=== PATIENT | female | born 1955 | race Caucasian/White ===

== ENCOUNTER 2020-12-13 08:28 | Outpatient (REF) | payer MEDICARE, SELFPAY ==
--- NOTE | ~2020-12-13 | MM_ITS ---
EXAMINATION: MM SCREENING DIGITAL BREAST TOMOSYNTHESIS, BILATERAL CLINICAL INFORMATION: Screening. Asymptomatic. The lifetime risk of breast cancer based on the Tyrer-Cuzick Model is 4.0%. COMPARISON: Mammography: October 08, 2019 and studies dating back to April 28, 2012 TECHNIQUE: Digital breast tomosynthesis is performed in both the craniocaudal and mediolateral oblique views along with computer-aided detection (CAD). Synthesized 2D images are generated from the tomosynthesis. Additional right exaggerated craniocaudal view performed. FINDINGS: The breasts are heterogeneously dense, which may obscure small masses (ACR BI-RADS breast composition Category c). There are no significant masses, abnormal calcifications, or other abnormalities. MM/MM tomosynthesis screening BI IMPRESSION: There are no significant changes from prior study. ASSESSMENT: BI-RADS 1: Negative RECOMMENDATION: Routine annual mammography screening. This patient's information was entered into a reminder system with a target due date for their next mammogram.
== END 2020-12-13 08:29 | disposition home or self-care (01) ==
LOC: HO.MAMMO 08:28
PROVIDERS: Visit Provider Family Medicine
DX: Z12.31 Encounter for screening mammogram for malignant neoplasm of breast (principal)
CPT/HCPCS: 77063; 77067

== ENCOUNTER 2021-03-13 06:34 | Day surgery (SDC) | payer MEDICARE, SELFPAY ==
--- NOTE | 2021-03-08 12:03 | HO.ANESPROP2 ---
HPI - Anesthesia Eval Consult details Narrative: 65yo F for Upper Endoscopy PMFSH Past Medical History Medical History Barretts esophagus Surgical History Surgical History History of esophagogastroduodenoscopy Hx of colonoscopy Social History Social History Patient Tobacco Use Status: Never used Tobacco Smoked in Last 30 Days: No Use of substances other than those prescribed or required for medical reasons: No Are you DNR?: No Advance Directives: No Advance Directives Information Provided: Yes Recently lost weight without trying: No Nutrition Risks: No Nutritional Risk Meds Allergies Allergy/AdvReac Type Severity Reaction Status Date / Time clindamycin Allergy Anaphylaxis Verified 03/13/21 06:46 Home Medications Medication Instructions Recorded Confirmed Last Taken Type atorvastatin 1 tab PO DAILY 03/13/21 03/13/21 03/13/21 History omeprazole 1 cap PO DAILY 03/13/21 03/13/21 03/13/21 History Exam Exam Date and Time: March 08, 2021 1203 Assessment and Plan Assessment Anesthesia Assessment: Chart Reviewed
[2021-03-13 06:42] VITALS: BMI 20.9
[2021-03-13 06:52] VITALS: BP 159/84; PULSE 59; RESP 16; TEMP 36.6; O2SAT 99
[2021-03-13] MEDS: Lactated Ringers 1,000 ML 50 ML IV (07:02)
--- NOTE | 2021-03-13 07:30 | MHC.SHP ---
Pre-Procedural Eval Section B Chief Complaint: dysphasia,barretts Details of Present Illness: see H&P no changes Relevant Family History (Specify if Yes): No Relevant Social History: None Present Medications: see Short Stay Collaborative assessment Medical History: No relevant PMH History of Previous Operations: No relevant previous surgery Allergies: Allergies Allergy/AdvReac Type Severity Reaction Status Date / Time clindamycin Allergy Anaphylaxis Verified 03/13/21 06:46 Review of Systems Sugical H&P ROS: Negative: Constitution, Cardiovascular, Respiratory, Neurological, Psychiatric, Hem-Onc, Allergic/Immunologic, Gastrointestinal, Genitourinary, Musculoskeletal, Integumentary, Endocrine and Eyes/Ears/Nose/Throat Exam Surgical H&P Exam: Normal: HEENT, Normal: Heart, Normal: Lungs, Normal: Extremities, Normal: Abdomen, Normal: Skin and Normal: Neurological Plan Diagnosis/Plan: Unchanged I have reviewed the history and physical and performed a pertinent physical examination on my patient. No changes have occurred unless specified.
--- NOTE | 2021-03-13 07:41 | P.CONAN_ITS ---
[facility] Past Medical History Medical History Barretts esophagus Surgical History Surgical History History of esophagogastroduodenoscopy Hx of colonoscopy Social History Social History Patient Tobacco Use Status: Never used Tobacco Smoked in Last 30 Days: No Use of substances other than those prescribed or required for medical reasons: No Are you DNR?: No Advance Directives: No Advance Directives Information Provided: Yes Recently lost weight without trying: No Nutrition Risks: No Nutritional Risk Meds Allergies Allergy/AdvReac Type Severity Reaction Status Date / Time clindamycin Allergy Anaphylaxis Verified 03/13/21 06:46 Active Medications: Current Medications Generic Name Dose Route Start Last Admin Trade Name Freq PRN Reason Stop Dose Admin Lactated Ringer's 1,000 mls @ 50 mls/hr 03/13/21 06:30 03/13/21 07:02 Lr IV 50 mls/hr .Q20H DENISE Administration Home Medications Medication Instructions Recorded Confirmed Last Taken Type atorvastatin 1 tab PO DAILY 03/13/21 03/13/21 03/13/21 History omeprazole 1 cap PO DAILY 03/13/21 03/13/21 03/13/21 History Exam Exam Date and Time: March 13, 2021 0741 Height,Weight and Vital Signs: Height 5 ft 6 in Weight 58.967 kg Last Vital Signs Temp 97.9 F 03/13/21 06:52 Pulse 59 03/13/21 06:52 Resp 16 03/13/21 06:52 BP 159/84 H 03/13/21 06:52 Pulse Ox 99 03/13/21 06:52 Airway Mallampati Class: I TM Dist: >3cm Neck ROM: Full Denture: Upper Heart: RTT of
--- NOTE | 2021-03-13 07:49 | P.BOP_ITS ---
Brief Operative Note Date of Service: 03/13/21 Pre-op diagnosis: barretts Post-op diagnosis: same Surgeon: Clark Martin Anesthesia: MAC Was an General Accounting Manager used for this Procedure?: No Estimated blood loss (mL): 2 Pathology: other (bxs esophagus, gastric polyp) Condition: stable Disposition: PACU
[2021-03-13 07:52] VITALS: BP 116/63; PULSE 78; RESP 16; TEMP 36.3; O2SAT 96
[2021-03-13 08:07] VITALS: BP 128/72; PULSE 75; RESP 17; TEMP 36.3; O2SAT 99
--- NOTE | 2021-03-13 19:05 | OP_ITS ---
SURGEON: Clark Martin MD INDICATIONS: Pearce's esophagus. PREOPERATIVE DIAGNOSIS: POSTOPERATIVE DIAGNOSIS: PROCEDURE PERFORMED: Upper endoscopy with biopsy. ESTIMATED BLOOD LOSS: COMPLICATIONS: ANESTHESIA: ASSISTANTS: SPECIMENS: MEDICATIONS: Monitored anesthesia care. DESCRIPTION OF PROCEDURE: History and physical performed. The risks and benefits of the procedure were explained to the patient. Informed consent was obtained. The patient was placed in the left lateral decubitus position. The Olympus video gastroscope was introduced into the esophagus, stomach, and duodenum. Examination was performed. The scope was removed. She tolerated the procedure well and was taken to recovery in stable condition. FINDINGS: Esophagus: The esophagus showed a 2 cm area of Pearce's esophagus extending from the EG junction proximally. There were no raised lesions or ulcerated areas. Biopsies were obtained at the EG junction, and at 38 cm, there was a small gastric polyp measuring less than 5 mm just below the EG junction. This was biopsied. There were several other gastric polyps, which appeared less than 5 mm in the proximal stomach. These had the appearance of fundic gland or hyperplastic polyps. The antrum appeared normal. Duodenum: The bulb and second portion were normal. IMPRESSION: 1. Pearce's esophagus. 2. Gastric polyps. RECOMMENDATION: 1. Follow up the biopsy results. 2. Continue omeprazole. MD STEPHANIE Leonard/BRODERICK / [id number]
== END 2021-03-13 08:41 | disposition home or self-care (01) ==
PROVIDERS: PCP Family Medicine; Visit Provider Internal Medicine Gastroenterology
PROC: 0DJ08ZZ Inspection of Upper Intestinal Tract, Via Natural or Artificial Opening Endoscopic (ICD-10-PCS; CPT 43235; principal; 2021-03-13 07:30)
DX: K22.70 Barrett's esophagus without dysplasia (principal); K31.7 Polyp of stomach and duodenum; K21.9 Gastro-esophageal reflux disease without esophagitis; Z79.899 Other long term (current) drug therapy; Z88.1 Allergy status to other antibiotic agents
CPT/HCPCS: 43239; 88305; 88342

== ENCOUNTER 2021-12-21 07:20 | Outpatient (REF) | payer MEDICARE, SELFPAY ==
--- NOTE | ~2021-12-21 | MM_ITS ---
EXAMINATION: MM SCREENING DIGITAL BREAST TOMOSYNTHESIS, BILATERAL CLINICAL INFORMATION: Screening. Asymptomatic. The lifetime risk of breast cancer based on the Tyrer-Cuzick Model is 3%. COMPARISON: Mammography: 12/13/2020, 10/08/2019, 09/23/2019, 09/17/2018 TECHNIQUE: Digital breast tomosynthesis is performed in both the craniocaudal and mediolateral oblique views along with computer-aided detection (CAD). Synthesized 2D images are generated from the tomosynthesis. FINDINGS: There are scattered areas of fibroglandular density (ACR BI-RADS breast composition Category b). There are no significant masses, abnormal calcifications, or other abnormalities. Parenchymal pattern is similar to prior studies. There is no developing density or architectural abnormality. The axilla and skin contours are unremarkable. No significant changes. MM/MM tomosynthesis screening BI IMPRESSION: No mammographic evidence of malignancy. ASSESSMENT: BI-RADS 1: Negative RECOMMENDATION: Routine annual mammography screening. This patient's information was entered into a reminder system with a target due date for their next mammogram.
== END 2021-12-21 07:21 | disposition home or self-care (01) ==
LOC: HO.MAMMO 07:20
PROVIDERS: Visit Provider Family Medicine
DX: Z12.31 Encounter for screening mammogram for malignant neoplasm of breast (principal)
CPT/HCPCS: 77063; 77067

== ENCOUNTER 2024-08-31 06:55 | Day surgery (SDC) | payer MEDICARE, SELFPAY ==
[2024-08-27 10:41] VITALS: BMI 20.7
--- NOTE | 2024-08-30 09:57 | HO.ANESPROP2 ---
HPI - Anesthesia Eval Consult details Narrative: 69yo F for Upper Endoscopy PMFSH Past Medical History Medical History (Updated 08/27/24 @ 10:31 by Estefani Roldan, RN) Osteoarthritis Hyperlipidemia Disc disorder Barretts esophagus Surgical History Surgical History (Updated 08/27/24 @ 10:33 by Estefani Roldan, RN) Hx of tonsillectomy Hx of colonoscopy History of esophagogastroduodenoscopy Social History Social History Patient Tobacco Use Status: Never used Tobacco Have you been hit, kicked, punched, or otherwise hurt by someone within the past year? If so, by whom?: No Are you DNR?: No Advance Directives: No Advance Directives Information Provided: Yes Meds Allergies Allergy/AdvReac Type Severity Reaction Status Date / Time clindamycin Allergy Anaphylaxis Verified 03/13/21 06:46 Home Medications ?Medication ?Instructions ?Recorded ?Confirmed ?Last Taken ?Type omeprazole 20 mg capsule,delayed 1 cap PO BID 03/13/21 08/27/24 08/31/24 History release metformin 500 mg tablet 500 mg PO QPM 08/27/24 08/27/24 08/29/24 History rosuvastatin 20 mg tablet 20 mg PO DAILY 08/27/24 08/27/24 08/29/24 History Exam Height,Weight and Vital Signs: Height 5 ft 6 in Weight 58.06 kg Assessment and Plan Assessment Anesthesia Assessment: Chart Reviewed
[2024-08-31 07:32] VITALS: BP 171/93; PULSE 70; RESP 18; TEMP 36.3; O2SAT 97
[2024-08-31] MEDS: Lactated Ringers 1,000 ML 100 ML IVCONT (07:44)
[2024-08-31 07:59] LABS: Glucose, Whole Blood 90 mg/dL (60-115)
--- NOTE | 2024-08-31 08:29 | P.HPSUR_ITS ---
Pre-Procedural Eval Section A - 24 Hr Update-Section A only Date of Service: 08/31/24 Section B - Complete if H&P > 30 days Chief Complaint: Pearce's esophagus without dysplasia Details of Present Illness: see H&P no changes Relevant Family History (Specify if Yes): No Relevant Social History: None Present Medications: see Short Stay Collaborative assessment Medical History: No relevant PMH History of Previous Operations: No relevant previous surgery Allergies: Allergies Allergy/AdvReac Type Severity Reaction Status Date / Time clindamycin Allergy Anaphylaxis Verified 03/13/21 06:46 Review of Systems Sugical H&P ROS: Negative: Constitution, Cardiovascular, Respiratory, Neurological, Psychiatric, Hem-Onc, Allergic/Immunologic, Gastrointestinal, Genitourinary, Musculoskeletal, Integumentary, Endocrine and Eyes/Ears/Nose/Thr oat Exam Surgical H&P Exam: Normal: HEENT, Normal: Heart, Normal: Lungs, Normal: Extremities, Normal: Abdomen, Normal: Skin and Normal: Neurological Plan Diagnosis/Plan: Unchanged I have reviewed the history and physical and performed a pertinent physical examination on my patient. No changes have occurred unless specified. Time Spent With Patient Time: Total time managing care of this patient today ____ minutes.
[2024-08-31 08:56] VITALS: BP 109/67; PULSE 95; RESP 16; TEMP 36.1; O2SAT 96
[2024-08-31 09:11] VITALS: BP 126/92; PULSE 95; RESP 16; TEMP 36.1; O2SAT 96
--- NOTE | 2024-08-31 10:23 | OP_ITS ---
DATE OF SERVICE: 08/31/2024 SURGEON: Clark Martin MD INDICATIONS: Pearce esophagus. PREOPERATIVE DIAGNOSIS: POSTOPERATIVE DIAGNOSIS: PROCEDURE PERFORMED: Upper endoscopy with biopsy. ESTIMATED BLOOD LOSS: COMPLICATIONS: ANESTHESIA: Monitored anesthesia care. ASSISTANTS: SPECIMENS: DESCRIPTION OF PROCEDURE: A history and physical performed. The risks and benefits of the procedure were explained to the patient. Informed consent was obtained. The patient was placed in the left lateral decubitus position. The Olympus videogastroscope was introduced into the esophagus, stomach, and duodenum. Examination was performed. The scope was removed. She tolerated the procedure well and was taken to recovery area in stable condition. FINDINGS: Esophagus; the esophagus showed a 2 cm area of Pearce esophagus from the EG junction to 35 cm. There were no raised lesions or ulcerated areas. There was a small sliding hiatal hernia. Biopsies were obtained from the EG junction and from 35 cm. Stomach: Stomach was normal. Duodenum, the bulb and 2nd portion were normal. IMPRESSION: Pearce esophagus. RECOMMENDATION: Follow up the biopsy results. MD STEPHANIE Leonard/MODL / [id number]
== END 2024-08-31 09:38 | disposition home or self-care (01) ==
PROVIDERS: PCP Internal Medicine; Visit Provider Internal Medicine Gastroenterology
PROC: 0DJ08ZZ Inspection of Upper Intestinal Tract, Via Natural or Artificial Opening Endoscopic (ICD-10-PCS; CPT 43235; principal; 2024-08-31 08:30)
DX: K22.70 Barrett's esophagus without dysplasia (principal); K21.9 Gastro-esophageal reflux disease without esophagitis; K44.9 Diaphragmatic hernia without obstruction or gangrene; E78.5 Hyperlipidemia, unspecified; M19.90 Unspecified osteoarthritis, unspecified site; Z79.899 Other long term (current) drug therapy; Z79.84 Long term (current) use of oral hypoglycemic drugs; Z88.1 Allergy status to other antibiotic agents
CPT/HCPCS: 43239; 82947; 88305; 88313; J1100; J1596; J2003; J2704